=== PATIENT | female | born 1995 | race Caucasian/White ===

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

== ENCOUNTER 2017-08-04 22:42 | Emergency (ER) | payer MEDICAID ==
[2017-08-04] MEDS ORDERED: Lidocaine 1% 30 ML SDV INJECT ONE (22:56)
[2017-08-04 23:03] VITALS: BP 119/83
[2017-08-04] MEDS ORDERED: Lidocaine 1% with EPINEPHrine 1:100,000 30 ML MDV INJECT ONE (23:03)
--- NOTE | 2017-08-04 23:08 | EDM.PDOC ---
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 Para 1 0 Social & Family History - Family History Family Medical History: Noncontributory - Caffeine Use Caffeine Use: Reports: Soda ED ROS GENERAL - Review of Systems Review Of Systems: ROS reveals no pertinent complaints other than HPI. ED EXAM, SKIN/RASH Exam: See Below Exam Limited By: No Limitations General Appearance: Alert, WD/WN, Anxious Ears: Hearing Grossly Normal Throat/Mouth: Normal Voice, No Airway Compromise Head: Atraumatic Neck: Non-Tender, Full Range of Motion Respiratory/Chest: No Respiratory Distress Cardiovascular: Regular Rate, Rhythm GI/Abdominal: Soft, Non-Tender Extremities: Other (left knee 3" lac, normal ROM, NV wnl, gait limited to pain) Neurological: Alert, Oriented, Normal Cognition, Normal Gait, No Motor/Sensory Deficits Psychiatric: Anxious Skin: Warm, Dry, Normal Color Location, Skin: Lower Extremity, Right ED SKIN PROCEDURES - Laceration/Wound Repair Left Knee Lac/Wound length In cm: 6 (left medial knee) Appearance: Subcutaneous, Linear, Clean Distal NVT: Neuro & Vascular Intact, No Tendon Injury Anesthetic Type: Local Local Anesthesia - Lidocaine (Xylocaine): 1% Plain, 1% with EPI Local Anesthetic Volume: 5cc Skin Prep: Chlorhexidine (Hibiciens) Saline Irrigation (cc's): 30 Exploration/Debridement/Repair: Wound Explored, In a Bloodless Field, No Foreign Material Found Closed with: Sutures Suture Size: 2-0 Suture Type: Nylon, Mattress Suture Size: 3-0 Repaired with: Vicryl Sterile Dressing Applied: Provider Tetanus Status Addressed: Yes Complications: No Course - Vital Signs Last Recorded V/S: Last Vital Signs Temp 36.1 C 08/04/17 22:57 Pulse 82 08/04/17 22:57 Resp 17 08/04/17 22:57 BP 119/83 08/04/17 22:57 Pulse Ox 100 08/04/17 22:57 - Orders/Labs/Meds Meds: Medications Discontinued Medications Generic Name Dose Route Start Last Admin Trade Name Manuel PRN Reason Stop Dose Admin Lidocaine HCl 30 ml 08/04/17 22:56 Xylocaine-Mpf 1% INJECT 08/04/17 22:57 ONETIME ONE Lidocaine/Epinephrine 30 ml 08/04/17 23:03 Xylocaine 1% With Epinephrine 1:100,000 INJECT 08/04/17 23:04 ONETIME ONE Lidocaine/Epinephrine 10 ml 08/04/17 23:30 Xylocaine-Mpf 2% W/Epinephrine 1:200,000 INJECT 08/04/17 23:31 ONETIME ONE Departure - Departure Time of Disposition: 23:52 Disposition: Home, Self-Care 01 Condition: Good Clinical Impression: Laceration of knee without complication Qualifiers: Encounter type: initial encounter Laterality: left Qualified Code(s): S81.012A - Laceration without foreign body, left knee, initial encounter - Discharge Information Instructions: Sutured Wound Care, [id number] Forms: ED Department Discharge Additional Instructions: 1) elevate knee as much as possible next 24 hours 2) keep wound clean dry covered 3) daily dressing change and clean with peroxide 4) recheck if looks infected 5) suture removal 10 days rx given; keflex 250mg qid x 40 vicodin 5/325mg bid prn x 12
[2017-08-04] MEDS ORDERED: Lidocaine 2% with EPINEPHrine 1:100,000 50 ML MDV INJECT ONE (23:09)
[2017-08-04] MEDS ORDERED: Lidocaine 2% 20 ML MDV INJECT ONE (23:22)
[2017-08-04] MEDS ORDERED: Lidocaine 2% with EPINEPHrine 1:200,000 10 ML SDV INJECT ONE (23:30)
[2017-08-04] MEDS ORDERED: Cephalexin 500 MG Cap PO ONE (23:48)
[2017-08-04] MEDS ORDERED: Acetaminophen/HYDROcodone 325-10 MG Tab PO ONE (23:48)
[2017-08-04] MEDS ORDERED: Diphtheria,Pertussis(Acell),Tetanus Vaccine 0.5 ML SDV IM ONE (23:55)
== END 2017-08-05 00:15 | disposition home or self-care (01) ==
LOC: DL.ED 22:42
DX: S81.012A Laceration without foreign body, left knee, initial encounter (principal); Z23 Encounter for immunization; W26.9XXA Contact with unspecified sharp object(s), initial encounter
CPT/HCPCS: 12002; 90471; 90715; 99283; A9270

== ENCOUNTER 2018-05-07 22:22 | Inpatient (IN) | payer MEDICAID ==
[2018-05-07] MEDS ORDERED: Lidocaine 1% 30 ML SDV INJECT PRN (23:20)
[2018-05-07] MEDS ORDERED: Carboprost Tromethamine 250 MCG/1 ML Amp IM PRN (23:20)
[2018-05-07] MEDS ORDERED: Lactated Ringers 500 ML IV ONE (23:20)
[2018-05-07] MEDS ORDERED: Methylergonovine 0.2 MG/1 ML Amp IM PRN (23:20)
[2018-05-07] MEDS ORDERED: Tranexamic Acid 1,000 MG in Sodium Chloride 0.9% 100 ML IV PRN (23:20)
[2018-05-07] MEDS ORDERED: Ondansetron 4 MG/2 ML SDV IV PRN (23:20)
[2018-05-07] MEDS ORDERED: Misoprostol 400 MCG (4 X 100 MCG TAB) RECTAL PRN (23:20)
[2018-05-07] MEDS ORDERED: Sodium Chloride 0.9% 10 ML Syringe FLUSH PRN (23:20)
[2018-05-07] MEDS ORDERED: Lactated Ringers 1,000 ML IV SCH (23:30)
[2018-05-07] MEDS ORDERED: Oxytocin/Normal Saline 30 UNIT/500 ML BAG IV SCH (23:30)
--- NOTE | 2018-05-07 23:32 | PCM.LDHP ---
<AkikoestephaniaAna Luisa byers - Last Filed: 05/07/18 23:26> L&D History of Present Illness - General Date of Service: 05/07/18 Admit Problem/Dx: normal labor Patient Status Order with Admit Dx/Problem 05/07/18 23:21 Patient Status [ADT] Routine Admission Diagnosis/Problem Admission Diagnosis/Problem Normal labor 05/07/18 23:26 Source of Information: Patient - History of Present Illness Introduction:: Liana is a 23 yo female at 40w2d who presents to L&D with contractions. They started about 4-5 hours ago and are crampy in nature. About 5 minutes apart. Denies vaginal bleeding, LOF, headache, vision change. Baby is active. Last after AROM she had delivery within 30 min of delivery. No other complaints. Good care. 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 Para 1 0 Social & Family History - Family History Family Medical History: Noncontributory - Caffeine Use Caffeine Use: Reports: Soda H&P Review of Systems - Review of Systems: Review Of Systems: See Below General: Reports: No Symptoms HEENT: Reports: No Symptoms Pulmonary: Reports: No Symptoms. Denies: Shortness of Breath Cardiovascular: Denies: Chest Pain Gastrointestinal: Reports: No Symptoms Genitourinary: Reports: No Symptoms Musculoskeletal: Reports: No Symptoms Skin: Reports: No Symptoms Neurological: Reports: No Symptoms. Denies: Headache L&D Exam - Exam Exam: See Below - Vital Signs Vital Signs: vitals pending - Exam General: Alert, Oriented HEENT: Conjunctiva Clear Neck: Supple Lungs: Clear to Auscultation, Normal Respiratory Effort Cardiovascular: Regular Rate, Regular Rhythm. No: Systolic Murmur GI/Abdominal Exam: Soft, Non-Tender Genitourinary: Cervical dilitation (5/100/0) Extremities: No Pedal Edema Skin: Warm, Dry. No: Rash - Problem List (1) care in third trimester SNOMED Code(s): 041136481, [id number], [id number], 461420037, 051248534 ICD Code: Z34.93 - ENCNTR FOR SUPRVSN OF NORMAL PREG, UNSP, THIRD TRIMESTER Status: Acute Current Visit: No (2) Normal labor SNOMED Code(s): 31419028 ICD Code: O80 - ENCOUNTER FOR FULL-TERM UNCOMPLICATED DELIVERY; Z37.9 - OUTCOME OF DELIVERY, UNSPECIFIED Status: Acute Current Visit: Yes Problem List Initiated/Reviewed/Updated: Yes Orders Last 24hrs: Active Orders 24 hr Category Date Time Status Patient Status [ADT] Routine ADT 05/07/18 23:21 Ordered Communication Order [RC] ASDIRECTED Care 05/07/18 23:21 Ordered Heart Tones [RC] PER UNIT ROUTINE Care 05/07/18 23:21 Ordered Notify Provider Vital Signs OB [RC] ASDIRECTED Care 05/07/18 23:21 Ordered Notify Provider [RC] PRN Care 05/07/18 23:21 Ordered Pump Management, Intrathecal [RC] ASDIRECTED Care 05/07/18 23:23 Ordered Up ad Liset [RC] ASDIRECTED Care 05/07/18 23:21 Ordered Vital Signs [RC] PER UNIT ROUTINE Care 05/07/18 23:21 Ordered Nothing Per Oral Diet [DIET] Diet 05/07/18 Dinner Ordered CBC W/O DIFF,HEMOGRAM [HEME] Routine Lab 05/07/18 23:21 Ordered Acetaminophen [Tylenol] Med 05/07/18 23:20 Ordered 650 mg PO Q4H PRN Carboprost Tromethamine [Hemabate DS] Med 05/07/18 23:20 Ordered 250 mcg IM ASDIRECTED PRN Lactated Ringers @ 125 MLS/HR(1000ml) Med 05/07/18 23:30 Ordered Lactated Ringers [Ringers, Lactated] 1,000 ml IV ASDIRECTED Lactated Ringers [Ringers, Lactated] 500 ml Med 05/07/18 23:20 Ordered IV .BOLUS Lidocaine 1% [Xylocaine-MPF 1%] Med 05/07/18 23:20 Ordered 30 ml INJECT ASDIRECTED PRN Methylergonovine [Methergine] Med 05/07/18 23:20 Ordered 0.2 mg IM ASDIRECTED PRN Ondansetron [Zofran] Med 05/07/18 23:20 Ordered 4 mg IV Q4H PRN Oxytocin 30 Units in NS @ 2 MUNITS/MIN(500ml) Med 05/07/18 23:30 Ordered Oxytocin/Normal Saline [Pitocin in NS 30 UNIT/500 ML] 30 unit in 500 ml IV TITRATE Sodium Chloride 0.9% [Saline Flush] Med 05/07/18 23:20 Ordered 10 ml FLUSH ASDIRECTED PRN Tranexamic Acid [Cyklokapron] 1,000 mg Med 05/07/18 23:20 Ordered Sodium Chloride 0.9% [Normal Saline] 100 ml IV ONETIME miSOPROStol [Cytotec] Med 05/07/18 23:20 Ordered 800 mcg RECTAL ASDIRECTED PRN Saline Lock Insert [OM.PC] Routine Oth 05/07/18 23:21 Ordered Resuscitation Status Routine Resus Stat 05/07/18 23:20 Ordered Medication Orders Acetaminophen (Tylenol) 650 mg PO Q4H PRN PRN Reason: Pain (Mild 1-3) and fever Carboprost Tromethamine (Hemabate Ds) 250 mcg IM ASDIRECTED PRN PRN Reason: HEMORRHAGE Lactated Ringer's (Ringers, Lactated) 500 mls @ 999 mls/hr IV .BOLUS ONE Stop: 05/07/18 23:50 Lactated Ringer's (Ringers, Lactated) 1,000 mls @ 125 mls/hr IV ASDIRECTED ASHISH Oxytocin/Sodium Chloride (Pitocin In Ns 30 Unit/500 Ml) 30 unit in 500 mls @ 2 mls/hr IV TITRATE ASHISH; Protocol Tranexamic Acid 1,000 mg/ (Sodium Chloride) 110 mls @ 660 mls/hr IV ONETIME PRN PRN Reason: Bleeding Lidocaine HCl (Xylocaine-Mpf 1%) 30 ml INJECT ASDIRECTED PRN PRN Reason: Perineal Repair Methylergonovine Maleate (Methergine) 0.2 mg IM ASDIRECTED PRN PRN Reason: Hemorrhage Misoprostol (Cytotec) 800 mcg RECTAL ASDIRECTED PRN PRN Reason: Hemorrhage Ondansetron HCl (Zofran) 4 mg IV Q4H PRN PRN Reason: Nausea/Vomiting Sodium Chloride (Saline Flush) 10 ml FLUSH ASDIRECTED PRN PRN Reason: Keep Vein Open Assessment/Plan Comment:: Admit to L&D Expectant management AROM when able Plans unmedicated delivery Staffed with Dr. Mreedith <Ariana Meredith - Last Filed: 05/08/18 12:55> L&D History of Present Illness - General Admit Problem/Dx: Patient Status Order with Admit Dx/Problem 05/07/18 23:21 Patient Status [ADT] Routine Admission Diagnosis/Problem Admission Diagnosis/Problem Normal labor Past Medical History Other OB/BYN History: Please disregard--above information is from her first L&D Exam - Vital Signs Vital Signs: Last Vital Signs Temp 37.1 C 05/08/18 08:08 Pulse 114 H 05/08/18 08:08 Resp 18 05/08/18 08:08 BP 112/67 05/08/18 08:08 Pulse Ox 96 05/08/18 08:08 - Patel Score Patel Score Cervix Position: Anterior Patel Score Consistency: Soft Patel Score Effacement: >80% Patel Score Dilation: > 5 cm Patel Score Infant's Station: -1 ,0 Patel Score Total: 12 - Patient Data Lab Results Last 24 hrs: Laboratory Results - last 24 hr 05/07/18 Range/Units 23:20 WBC 10.1 H (5.0-10.0) 10^3/uL RBC 4.47 (4.2-5.4) 10^6/uL Hgb 13.8 D (12.0-16.0) g/dL Hct 40.2 (37.0-47.0) % MCV 89.9 (80-100) fL MCH 30.9 (27.0-34.0) pg MCHC 34.3 (33.0-35.0) g/dL Plt Count 145 L (150-450) 10^3/uL Result Diagrams: 05/07/18 23:20 - Problem List (1) Normal labor SNOMED Code(s): 37938164 ICD Code: O80 - ENCOUNTER FOR FULL-TERM UNCOMPLICATED DELIVERY; Z37.9 - OUTCOME OF DELIVERY, UNSPECIFIED Status: Resolved Current Visit: Yes Orders Last 24hrs: Active Orders 24 hr Category Date Time Status Patient Status [ADT] Routine ADT 05/07/18 23:21 Active Notify Provider Vital Signs OB [RC] ASDIRECTED Care 05/07/18 23:21 Active Up ad Liset [RC] ASDIRECTED Care 05/07/18 23:21 Active Vital Signs [RC] 08,20 Care 05/07/18 23:21 Active Vital Signs [RC] PFP Care 05/08/18 02:14 Active Consult to Cheese Production Supervisor [CONS] Routine Cons 05/08/18 02:14 Active Regular Diet [DIET] Diet 05/08/18 Breakfast Active Acetaminophen [Tylenol] Med 05/07/18 23:20 Active 650 mg PO Q4H PRN Acetaminophen/HYDROcodone [Orange 325-5 MG] Med 05/08/18 02:16 Active 1 tab PO Q6H PRN Benzocaine/Menthol [Dermoplast Pain Relief Gilliam] Med 05/08/18 02:14 Active See Dose Instructions TOP Q4H PRN Carboprost Tromethamine [Hemabate DS] Med 05/07/18 23:20 Active 250 mcg IM ASDIRECTED PRN Docusate Sodium [Colace] Med 05/08/18 02:14 Active 100 mg PO BID PRN Ibuprofen [Motrin] Med 05/08/18 02:14 Active 800 mg PO Q8H PRN Methylergonovine [Methergine] Med 05/07/18 23:20 Active 0.2 mg IM ASDIRECTED PRN Ondansetron [Zofran] Med 05/07/18 23:20 Active 4 mg IV Q4H PRN Oxytocin [Pitocin] Med 05/08/18 02:14 Active 10 unit IM ONETIME PRN Oxytocin/Normal Saline [Pitocin in NS 30 UNIT/500 ML] Med 05/07/18 23:30 Active 30 unit in 500 ml IV TITRATE Vit with Ca/FA/Iron [ Plus Iron] Med 05/08/18 09:00 Active 1 each PO DAILY Simethicone Med 05/08/18 02:14 Active 80 mg PO Q4H PRN Tranexamic Acid [Cyklokapron] 1,000 mg Med 05/07/18 23:20 Active Sodium Chloride 0.9% [Normal Saline] 100 ml IV ONETIME miSOPROStol [Cytotec] Med 05/07/18 23:20 Active 800 mcg RECTAL ASDIRECTED PRN Assess Lochia [WOMSER] Per Unit Routine Oth 05/08/18 02:14 Ordered Assess Uterine Involution [WOMSER] Per Unit Routine Oth 05/08/18 02:14 Ordered Breast Pump [WOMSER] Per Unit Routine Oth 05/08/18 02:14 Ordered Ice Therapy [OM.PC] Per Unit Routine Oth 05/08/18 02:14 Ordered Perineal Care [OM.PC] Per Unit Routine Oth 05/08/18 02:14 Ordered Saline Lock Insert [OM.PC] Routine Oth 05/07/18 23:21 Ordered Sitz Bath [OM.PC] Per Unit Routine Oth 05/08/18 02:14 Ordered Resuscitation Status Routine Resus Stat 05/07/18 23:20 Ordered Medication Orders Acetaminophen (Tylenol) 650 mg PO Q4H PRN PRN Reason: Pain (Mild 1-3) and fever Last Admin: 05/08/18 12:44 Dose: 650 mg Hydrocodone Bitart/Acetaminophen (Orange 325-5 Mg) 1 tab PO Q6H PRN PRN Reason: Pain (severe 7-10) Benzocaine/Menthol (Dermoplast Pain Relief Gilliam) 0 gm TOP Q4H PRN PRN Reason: Perineal comfort measures Carboprost Tromethamine (Hemabate Ds) 250 mcg IM ASDIRECTED PRN PRN Reason: HEMORRHAGE Docusate Sodium (Colace) 100 mg PO BID PRN PRN Reason: Constipation Last Admin: 05/08/18 07:58 Dose: 100 mg Oxytocin/Sodium Chloride (Pitocin In Ns 30 Unit/500 Ml) 30 unit in 500 mls @ 2 mls/hr IV TITRATE ASHISH; Protocol Last Titration: 05/08/18 04:15 Dose: 0 munits/min, 0 mls/hr Titration: 05/08/18 03:50 Dose: 50 munits/min, 50 mls/hr Titration: 05/08/18 03:00 Dose: 125 munits/min, 125 mls/hr Titration: 05/08/18 02:18 Dose: 250 munits/min, 250 mls/hr Admin: 05/08/18 01:52 Dose: 500 munits/min, 500 mls/hr Tranexamic Acid 1,000 mg/ (Sodium Chloride) 110 mls @ 660 mls/hr IV ONETIME PRN PRN Reason: Bleeding Ibuprofen (Motrin) 800 mg PO Q8H PRN PRN Reason: Mild Pain or Fever Last Admin: 05/08/18 07:59 Dose: 800 mg Methylergonovine Maleate (Methergine) 0.2 mg IM ASDIRECTED PRN PRN Reason: Hemorrhage Misoprostol (Cytotec) 800 mcg RECTAL ASDIRECTED PRN PRN Reason: Hemorrhage Ondansetron HCl (Zofran) 4 mg IV Q4H PRN PRN Reason: Nausea/Vomiting Oxytocin (Pitocin) 10 unit IM ONETIME PRN PRN Reason: Bleeding Prenat Multivit/Special Day Class Teacher/Iron/Folic Ac ( Plus Iron) 1 each PO DAILY ASHISH Last Admin: 05/08/18 09:18 Dose: Not Given Admin: 05/08/18 07:58 Dose: 1 each Simethicone (Simethicone) 80 mg PO Q4H PRN PRN Reason: Gas Assessment/Plan Comment:: Agree with resident assessment and plan. Will AROM when able--unable to upon admission due to staffing issues because of urgent matter on L&D floor. Ariana Meredith MD
[2018-05-08] MEDS ORDERED: Oxytocin 10 Units/1 ML SDV IM PRN (02:14)
[2018-05-08] MEDS ORDERED: Benzocaine/Menthol 20%-0.5% Spray 56 GM Canister TOP PRN (02:14)
[2018-05-08] MEDS ORDERED: Simethicone 80 MG Tab.Chew PO PRN (02:14)
[2018-05-08] MEDS ORDERED: Acetaminophen/HYDROcodone 325-5 MG Tab PO PRN (02:16)
--- NOTE | 2018-05-08 02:38 | PCM.DEL ---
<Ana Luisa Bryant - Last Filed: 05/08/18 02:33> L & D Note - General Info Date of Service: 05/08/18 - Delivery Note Labor: Spontaneous, Augmented by ARM Delivery Outcome: Livebirth Delivery Method: Spontaneous Vaginal Delivery-Single Infant Delivery Mode: Spontaneous Presentation: Right Occiput Anterior (MARY) Nuchal Cord: None Anesthesia Type: None Amniotic Fluid Description: Clear Episiotomy Type: None Laceration: Periurethral (left, not repaired) Placenta: Intact, Spontaneous Estimated Blood Loss: 300 Resuscitation Needed: No Score 1 min: 8 Score 5 min: 9 Second Stage Interventions: Reports: Pushing, Feet in Foot Rests, Pushing, McRobert's Position, Pushing, Pulls Own Legs Back Delivery Comments (Free Text/Narrative):: Presented in active labor. Augmented with AROM. Progressed to complete without complication. Head delivered spontaneously. 30 second shoulder dystocia resolved by McRobert's maneuver. Body then delivered without incident. No cord complications. Placenta delivered spontaneously and intact. Left periurethra laceration not repaired. Hemostasis achieved. - General Info Date of Service: 05/08/18 - Patient Data Weight - Most Recent: 71.214 kg Lab Results Last 24 Hours: Laboratory Results - last 24 hr 05/07/18 Range/Units 23:20 WBC 10.1 H (5.0-10.0) 10^3/uL RBC 4.47 (4.2-5.4) 10^6/uL Hgb 13.8 D (12.0-16.0) g/dL Hct 40.2 (37.0-47.0) % MCV 89.9 (80-100) fL MCH 30.9 (27.0-34.0) pg MCHC 34.3 (33.0-35.0) g/dL Plt Count 145 L (150-450) 10^3/uL Med Orders - Current: Current Medications Acetaminophen (Tylenol) 650 mg PO Q4H PRN PRN Reason: Pain (Mild 1-3) and fever Hydrocodone Bitart/Acetaminophen ([place] 325-5 Mg) 1 tab PO Q6H PRN PRN Reason: Pain (severe 7-10) Benzocaine/Menthol (Dermoplast Pain Relief [place]) 0 gm TOP Q4H PRN PRN Reason: Perineal comfort measures Carboprost Tromethamine (Hemabate Ds) 250 mcg IM ASDIRECTED PRN PRN Reason: HEMORRHAGE Docusate Sodium (Colace) 100 mg PO BID PRN PRN Reason: Constipation Lactated Ringer's (Ringers, Lactated) 1,000 mls @ 125 mls/hr IV ASDIRECTED [facility] Last Admin: 05/08/18 01:24 Dose: 125 mls/hr Oxytocin/Sodium Chloride (Pitocin In Ns 30 Unit/500 Ml) 30 unit in 500 mls @ 2 mls/hr IV TITRATE ASHISH; Protocol Last Titration: 05/08/18 02:18 Dose: 250 munits/min, 250 mls/hr Tranexamic Acid 1,000 mg/ (Sodium Chloride) 110 mls @ 660 mls/hr IV ONETIME PRN PRN Reason: Bleeding Ibuprofen (Motrin) 800 mg PO Q8H PRN PRN Reason: Mild Pain or Fever Lidocaine HCl (Xylocaine-Mpf 1%) 30 ml INJECT ASDIRECTED PRN PRN Reason: Perineal Repair Methylergonovine Maleate (Methergine) 0.2 mg IM ASDIRECTED PRN PRN Reason: Hemorrhage Misoprostol (Cytotec) 800 mcg RECTAL ASDIRECTED PRN PRN Reason: Hemorrhage Ondansetron HCl (Zofran) 4 mg IV Q4H PRN PRN Reason: Nausea/Vomiting Oxytocin (Pitocin) 10 unit IM ONETIME PRN PRN Reason: Bleeding Prenat Multivit/[place]/Iron/Folic Ac ( Plus Iron) 1 each PO DAILY [facility] Simethicone (Simethicone) 80 mg PO Q4H PRN PRN Reason: Gas Sodium Chloride (Saline Flush) 10 ml FLUSH ASDIRECTED PRN PRN Reason: Keep Vein Open Discontinued Medications Lactated Ringer's (Ringers, Lactated) 500 mls @ 999 mls/hr IV .BOLUS ONE Stop: 05/07/18 23:50 - Problem List & Annotations (1) care in third trimester SNOMED Code(s): 857658168, 46218488, 96350051, 939111493, 137875331 Code(s): Z34.93 - ENCNTR FOR SUPRVSN OF NORMAL PREG, UNSP, THIRD TRIMESTER Status: Resolved Current Visit: No (2) Normal labor SNOMED Code(s): 78883337 Code(s): O80 - ENCOUNTER FOR FULL-TERM UNCOMPLICATED DELIVERY; Z37.9 - OUTCOME OF DELIVERY, UNSPECIFIED Status: Resolved Current Visit: Yes (3) (normal spontaneous vaginal delivery) SNOMED Code(s): 37975667 Code(s): O80 - ENCOUNTER FOR FULL-TERM UNCOMPLICATED DELIVERY Status: Acute Current Visit: Yes (4) Shoulder dystocia during labor and delivery, delivered SNOMED Code(s): 231503824, 018259069 Code(s): O66.0 - OBSTRUCTED LABOR DUE TO SHOULDER DYSTOCIA Status: Acute Current Visit: Yes - Problem List Review Problem List Initiated/Reviewed/Updated: Yes - My Orders Last 24 Hours: My Active Orders 05/07/18 23:20 Acetaminophen [Tylenol] 650 mg PO Q4H PRN Carboprost Tromethamine [Hemabate DS] 250 mcg IM ASDIRECTED PRN Lidocaine 1% [Xylocaine-MPF 1%] 30 ml INJECT ASDIRECTED PRN Methylergonovine [Methergine] 0.2 mg IM ASDIRECTED PRN Ondansetron [Zofran] 4 mg IV Q4H PRN Sodium Chloride 0.9% [Saline Flush] 10 ml FLUSH ASDIRECTED PRN Tranexamic Acid [Cyklokapron] 1,000 mg Sodium Chloride 0.9% [Normal Saline] 100 ml IV ONETIME miSOPROStol [Cytotec] 800 mcg RECTAL ASDIRECTED PRN Resuscitation Status Routine 05/07/18 23:21 Patient Status [ADT] Routine Communication Order [RC] ASDIRECTED Heart Tones [RC] PER UNIT ROUTINE Notify Provider Vital Signs OB [RC] ASDIRECTED Notify Provider [RC] PRN Up ad Liset [RC] ASDIRECTED Vital Signs [RC] PER UNIT ROUTINE Saline Lock Insert [OM.PC] Routine 05/07/18 23:23 Pump Management, Intrathecal [RC] ASDIRECTED 05/07/18 23:30 Lactated Ringers [Ringers, Lactated] 1,000 ml IV ASDIRECTED Oxytocin/Normal Saline [Pitocin in NS 30 UNIT/500 ML] 30 unit in 500 ml IV TITRATE 05/07/18 Dinner Nothing Per Oral Diet [DIET] - Plan Plan:: Initiate routine post cares. Staffed with Dr. Meredith <MasoudAriana Ann - Last Filed: 05/08/18 13:02> - Patient Data Vitals - Most Recent: Last Vital Signs Temp 37.1 C 05/08/18 08:08 Pulse 114 H 05/08/18 08:08 Resp 18 05/08/18 08:08 BP 112/67 05/08/18 08:08 Pulse Ox 96 05/08/18 08:08 I&O - Last 24 Hours: Intake & Output 05/07/18 05/08/18 05/08/18 22:59 06:59 14:59 Intake Total 1500 Balance 1500 Lab Results Last 24 Hours: Laboratory Results - last 24 hr 05/07/18 Range/Units 23:20 WBC 10.1 H (5.0-10.0) 10^3/uL RBC 4.47 (4.2-5.4) 10^6/uL Hgb 13.8 D (12.0-16.0) g/dL Hct 40.2 (37.0-47.0) % MCV 89.9 (80-100) fL MCH 30.9 (27.0-34.0) pg MCHC 34.3 (33.0-35.0) g/dL Plt Count 145 L (150-450) 10^3/uL Med Orders - Current: Current Medications Acetaminophen (Tylenol) 650 mg PO Q4H PRN PRN Reason: Pain (Mild 1-3) and fever Last Admin: 05/08/18 12:44 Dose: 650 mg Hydrocodone Bitart/Acetaminophen ([place] 325-5 Mg) 1 tab PO Q6H PRN PRN Reason: Pain (severe 7-10) Benzocaine/Menthol (Dermoplast Pain Relief [place]) 0 gm TOP Q4H PRN PRN Reason: Perineal comfort measures Carboprost Tromethamine (Hemabate Ds) 250 mcg IM ASDIRECTED PRN PRN Reason: HEMORRHAGE Docusate Sodium (Colace) 100 mg PO BID PRN PRN Reason: Constipation Last Admin: 05/08/18 07:58 Dose: 100 mg Oxytocin/Sodium Chloride (Pitocin In Ns 30 Unit/500 Ml) 30 unit in 500 mls @ 2 mls/hr IV TITRATE ASHISH; Protocol Last Titration: 05/08/18 04:15 Dose: Infused Tranexamic Acid 1,000 mg/ (Sodium Chloride) 110 mls @ 660 mls/hr IV ONETIME PRN PRN Reason: Bleeding Ibuprofen (Motrin) 800 mg PO Q8H PRN PRN Reason: Mild Pain or Fever Last Admin: 05/08/18 07:59 Dose: 800 mg Methylergonovine Maleate (Methergine) 0.2 mg IM ASDIRECTED PRN PRN Reason: Hemorrhage Misoprostol (Cytotec) 800 mcg RECTAL ASDIRECTED PRN PRN Reason: Hemorrhage Ondansetron HCl (Zofran) 4 mg IV Q4H PRN PRN Reason: Nausea/Vomiting Oxytocin (Pitocin) 10 unit IM ONETIME PRN PRN Reason: Bleeding Prenat Multivit/[place]/Iron/Folic Ac ( Plus Iron) 1 each PO DAILY [facility] Last Admin: 05/08/18 09:18 Dose: Not Given Simethicone (Simethicone) 80 mg PO Q4H PRN PRN Reason: Gas Discontinued Medications Lactated Ringer's (Ringers, Lactated) 500 mls @ 999 mls/hr IV .BOLUS ONE Stop: 05/07/18 23:50 Last Admin: 05/08/18 08:47 Dose: Not Given Lactated Ringer's (Ringers, Lactated) 1,000 mls @ 125 mls/hr IV ASDIRECTED [facility] Last Admin: 05/08/18 01:24 Dose: 125 mls/hr Lidocaine HCl (Xylocaine-Mpf 1%) 30 ml INJECT ASDIRECTED PRN PRN Reason: Perineal Repair Sodium Chloride (Saline Flush) 10 ml FLUSH ASDIRECTED PRN PRN Reason: Keep Vein Open - Problem List & Annotations (1) Normal labor SNOMED Code(s): 23662758 Code(s): O80 - ENCOUNTER FOR FULL-TERM UNCOMPLICATED DELIVERY; Z37.9 - OUTCOME OF DELIVERY, UNSPECIFIED Status: Resolved Current Visit: Yes - My Orders Last 24 Hours: My Active Orders 05/08/18 02:14 Vital Signs [RC] PFP Consult to Linux Network Administrator [CONS] Routine Benzocaine/Menthol [Dermoplast Pain Relief [place]] See Dose Instructions TOP Q4H PRN Docusate Sodium [Colace] 100 mg PO BID PRN Ibuprofen [Motrin] 800 mg PO Q8H PRN Oxytocin [Pitocin] 10 unit IM ONETIME PRN Simethicone 80 mg PO Q4H PRN Assess Lochia [WOMSER] Per Unit Routine Assess Uterine Involution [WOMSER] Per Unit Routine Breast Pump [WOMSER] Per Unit Routine Ice Therapy [OM.PC] Per Unit Routine Perineal Care [OM.PC] Per Unit Routine Sitz Bath [OM.PC] Per Unit Routine 05/08/18 02:16 Acetaminophen/HYDROcodone [[place] 325-5 MG] 1 tab PO Q6H PRN 05/08/18 09:00 Vit with Ca/FA/Iron [ Plus Iron] 1 each PO DAILY 05/08/18 Breakfast Regular Diet [DIET] - Plan Plan:: Agree with resident assessment and plan. I was present for the entire delivery. There were no immediate complications. Initiate routine cares. Mother plans to breastfeed. Ariana Meredith MD
[2018-05-08] MEDS: Prenatal Multivitamin with Calcium/Folic Acid/Iron Tab PO SCH ×2 (07:58→09:18)
[2018-05-08] MEDS: Docusate Sodium 100 MG Cap PO PRN ×2 (07:58→18:28)
[2018-05-08] MEDS: Ibuprofen 800 MG Tab PO PRN ×2 (07:59→18:28)
[2018-05-08] MEDS: Acetaminophen 325 MG Tab PO PRN ×2 (12:44→18:28)
[2018-05-09 07:32] VITALS: BP 131/75
[2018-05-09] MEDS: Ibuprofen 800 MG Tab PO PRN (09:38)
[2018-05-09] MEDS: Prenatal Multivitamin with Calcium/Folic Acid/Iron Tab PO SCH (09:38)
[2018-05-09] MEDS: Docusate Sodium 100 MG Cap PO PRN (09:38)
--- NOTE | 2018-05-09 09:54 | PCM.PNPP ---
- General Info Date of Service: 05/09/18 Admission Dx/Problem (Free Text): Patient Status Order with Admit Dx/Problem 05/07/18 23:21 Patient Status [ADT] Routine Admission Diagnosis/Problem Admission Diagnosis/Problem Normal labor Subjective Update: Liana is PPD1 from complicated by short shoulder dystocia. Doing well this morning. Pain well controlled. Lochia is mild. tolerating general diet. No nausea/vomiting. Urinating spontaneously. Passing gas. Ambulating well. and this is going well. Baby doing well. Denies headache, vision change, calf pain. - Review of Systems Systems Review Comment:: ROS completed and negative except per HPI - General Info Date of Service: 05/09/18 - Patient Data Vital Signs - Most Recent: Last Vital Signs Temp 97.1 F 05/09/18 07:31 Pulse 94 05/09/18 07:31 Resp 16 05/09/18 07:31 BP 131/75 05/09/18 07:31 Pulse Ox 100 05/09/18 07:31 Weight - Most Recent: 157 lb Med Orders - Current: Current Medications Acetaminophen (Tylenol) 650 mg PO Q4H PRN PRN Reason: Pain (Mild 1-3) and fever Last Admin: 05/08/18 18:28 Dose: 650 mg Hydrocodone Bitart/Acetaminophen ([place] 325-5 Mg) 1 tab PO Q6H PRN PRN Reason: Pain (severe 7-10) Benzocaine/Menthol (Dermoplast Pain Relief [place]) 0 gm TOP Q4H PRN PRN Reason: Perineal comfort measures Carboprost Tromethamine (Hemabate Ds) 250 mcg IM ASDIRECTED PRN PRN Reason: HEMORRHAGE Docusate Sodium (Colace) 100 mg PO BID PRN PRN Reason: Constipation Last Admin: 05/09/18 09:38 Dose: 100 mg Oxytocin/Sodium Chloride (Pitocin In Ns 30 Unit/500 Ml) 30 unit in 500 mls @ 2 mls/hr IV TITRATE ASHISH; Protocol Last Titration: 05/08/18 04:15 Dose: Infused Tranexamic Acid 1,000 mg/ (Sodium Chloride) 110 mls @ 660 mls/hr IV ONETIME PRN PRN Reason: Bleeding Ibuprofen (Motrin) 800 mg PO Q8H PRN PRN Reason: Mild Pain or Fever Last Admin: 05/09/18 09:38 Dose: 800 mg Methylergonovine Maleate (Methergine) 0.2 mg IM ASDIRECTED PRN PRN Reason: Hemorrhage Misoprostol (Cytotec) 800 mcg RECTAL ASDIRECTED PRN PRN Reason: Hemorrhage Ondansetron HCl (Zofran) 4 mg IV Q4H PRN PRN Reason: Nausea/Vomiting Oxytocin (Pitocin) 10 unit IM ONETIME PRN PRN Reason: Bleeding Prenat Multivit/[place]/Iron/Folic Ac ( Plus Iron) 1 each PO DAILY [facility] Last Admin: 05/09/18 09:38 Dose: 1 each Simethicone (Simethicone) 80 mg PO Q4H PRN PRN Reason: Gas Discontinued Medications Lactated Ringer's (Ringers, Lactated) 500 mls @ 999 mls/hr IV .BOLUS ONE Stop: 05/07/18 23:50 Last Admin: 05/08/18 08:47 Dose: Not Given Lactated Ringer's (Ringers, Lactated) 1,000 mls @ 125 mls/hr IV ASDIRECTED [facility] Last Admin: 05/08/18 01:24 Dose: 125 mls/hr Lidocaine HCl (Xylocaine-Mpf 1%) 30 ml INJECT ASDIRECTED PRN PRN Reason: Perineal Repair Sodium Chloride (Saline Flush) 10 ml FLUSH ASDIRECTED PRN PRN Reason: Keep Vein Open - Interaction Disposition, : at Bedside Interaction: Holding Feeding: Breastfed ; Nursed Well Support Person: Significant Other - Recovery Exam Fundal Tone: Firm Fundal Level: 2 Fingerbreadths Below Umbilicus Fundal Placement: Midline Lochia Amount: Small Lochia Color: Rubra/Red Perineum Description: Intact, Minimal Bruising/Swelling Episiotomy/Laceration: None Bladder Status: Nonpalpable, Voiding Urinary Elimination: Voided - Exam General: Alert, Oriented, No Acute Distress Neck: Supple Lungs: Clear to Auscultation, Normal Respiratory Effort. No: Rales, Rhonchi, Wheezing Cardiovascular: Regular Rate, Regular Rhythm, No Murmurs GI/Abdominal Exam: Soft, Non-Tender Extremities: No Pedal Edema Skin: Warm, Dry Psy/Mental Status: Alert, Normal Affect, Normal Mood - Problem List & Annotations (1) care in third trimester SNOMED Code(s): 918941086, 78490366, 21525758, 358827676, 290793190 Code(s): Z34.93 - ENCNTR FOR SUPRVSN OF NORMAL PREG, UNSP, THIRD TRIMESTER Status: Resolved Current Visit: No (2) Normal labor SNOMED Code(s): 92101120 Code(s): O80 - ENCOUNTER FOR FULL-TERM UNCOMPLICATED DELIVERY; Z37.9 - OUTCOME OF DELIVERY, UNSPECIFIED Status: Resolved Current Visit: Yes (3) (normal spontaneous vaginal delivery) SNOMED Code(s): 70019748 Code(s): O80 - ENCOUNTER FOR FULL-TERM UNCOMPLICATED DELIVERY Status: Acute Current Visit: Yes (4) Shoulder dystocia during labor and delivery, delivered SNOMED Code(s): 322276720, 872752282 Code(s): O66.0 - OBSTRUCTED LABOR DUE TO SHOULDER DYSTOCIA Status: Acute Current Visit: Yes - Problem List Review Problem List Initiated/Reviewed/Updated: Yes - My Orders Last 24 Hours: My Active Orders 05/09/18 08:35 Ready for Discharge [RC] PER UNIT ROUTINE - Plan Plan:: Agree with resident assessment and plan. I was present for the entire delivery. There were no immediate complications. Initiate routine cares. Mother plans to breastfeed. Ariana Meredith MD
--- NOTE | 2018-05-09 10:02 | PCM.DCSUM1 ---
<ScottseanestephaniaAna Luisa byers - Last Filed: 05/09/18 09:57> Discharge Summary - Hospital Course Free Text/Narrative:: Liana is a 23 yo G2 now P2 female who presented in normal labor at 40w2d and proceeded to have a complicated by a 30 second shoulder dystocia resolved with Stella maneuver. Post course was uncomplicated. Hgb stable. By PPD1 she was tolerating general diet, ambulating, urinating spontaneously, and had pain that was well controlled. - Discharge Data Discharge Date: 05/09/18 Discharge Disposition: Home, Self-Care 01 Condition: Good - Discharge Diagnosis/Problem(s) (1) care in third trimester SNOMED Code(s): 974875340, 54190640, 77736045, 258144963, 816109591 ICD Code: Z34.93 - ENCNTR FOR SUPRVSN OF NORMAL PREG, UNSP, THIRD TRIMESTER Status: Resolved Current Visit: No (2) Normal labor SNOMED Code(s): 48645301 ICD Code: O80 - ENCOUNTER FOR FULL-TERM UNCOMPLICATED DELIVERY; Z37.9 - OUTCOME OF DELIVERY, UNSPECIFIED Status: Resolved Current Visit: Yes (3) (normal spontaneous vaginal delivery) SNOMED Code(s): 81140565 ICD Code: O80 - ENCOUNTER FOR FULL-TERM UNCOMPLICATED DELIVERY Status: Acute Current Visit: Yes (4) Shoulder dystocia during labor and delivery, delivered SNOMED Code(s): 891435189, 612993704 ICD Code: O66.0 - OBSTRUCTED LABOR DUE TO SHOULDER DYSTOCIA Status: Acute Current Visit: Yes - Patient Summary/Data Consults: Consultations 05/08/18 02:14 Consult to Flame Channeler [CONS] Routine - Patient Instructions Diet: Regular Diet as Tolerated Activity: As Tolerated Driving: May Drive Today Notify Provider of: Fever, Increased Pain, Swelling and Redness, Nausea and/or Vomiting - Discharge Plan *PRESCRIPTION DRUG MONITORING PROGRAM REVIEWED*: Not Applicable *COPY OF PRESCRIPTION DRUG MONITORING REPORT IN PATIENT GUSTAVO: Not Applicable Home Medications: Home Meds Pnv95/Iron Fum/Folic Acid [ [place]] 1 tab PO DAILY 03/19/16 [History] Acetaminophen [Tylenol] 650 mg PO Q4H PRN #0 tablet 09/02/16 [Rx] Docusate Sodium [Colace] 100 mg PO BID PRN #0 cap 09/02/16 [Rx] Ibuprofen [IJD: Ibuprofen] 800 mg PO Q8H PRN #0 tablet 09/02/16 [Rx] Ferrous Sulfate [Iron] 325 mg PO DAILY 05/08/18 [History] Patient Handouts: Vaginal Delivery, Care After - Discharge Summary/Plan Comment DC Time >30 min.: No Discharge Summary/Plan Comment: discharge patient to home Return criteria discussed as above. Follow up 6 weeks for post exam, sooner if concerns arise. Staffed with Dr. Meredith. - Patient Data Vitals - Most Recent: Last Vital Signs Temp 97.1 F 05/09/18 07:31 Pulse 94 05/09/18 07:31 Resp 16 05/09/18 07:31 BP 131/75 05/09/18 07:31 Pulse Ox 100 05/09/18 07:31 Weight - Most Recent: 71.214 kg Med Orders - Current: Current Medications Acetaminophen (Tylenol) 650 mg PO Q4H PRN PRN Reason: Pain (Mild 1-3) and fever Last Admin: 05/08/18 18:28 Dose: 650 mg Hydrocodone Bitart/Acetaminophen ([place] 325-5 Mg) 1 tab PO Q6H PRN PRN Reason: Pain (severe 7-10) Benzocaine/Menthol (Dermoplast Pain Relief [place]) 0 gm TOP Q4H PRN PRN Reason: Perineal comfort measures Carboprost Tromethamine (Hemabate Ds) 250 mcg IM ASDIRECTED PRN PRN Reason: HEMORRHAGE Docusate Sodium (Colace) 100 mg PO BID PRN PRN Reason: Constipation Last Admin: 05/09/18 09:38 Dose: 100 mg Oxytocin/Sodium Chloride (Pitocin In Ns 30 Unit/500 Ml) 30 unit in 500 mls @ 2 mls/hr IV TITRATE ASHISH; Protocol Last Titration: 05/08/18 04:15 Dose: Infused Tranexamic Acid 1,000 mg/ (Sodium Chloride) 110 mls @ 660 mls/hr IV ONETIME PRN PRN Reason: Bleeding Ibuprofen (Motrin) 800 mg PO Q8H PRN PRN Reason: Mild Pain or Fever Last Admin: 05/09/18 09:38 Dose: 800 mg Methylergonovine Maleate (Methergine) 0.2 mg IM ASDIRECTED PRN PRN Reason: Hemorrhage Misoprostol (Cytotec) 800 mcg RECTAL ASDIRECTED PRN PRN Reason: Hemorrhage Ondansetron HCl (Zofran) 4 mg IV Q4H PRN PRN Reason: Nausea/Vomiting Oxytocin (Pitocin) 10 unit IM ONETIME PRN PRN Reason: Bleeding Prenat Multivit/[place]/Iron/Folic Ac ( Plus Iron) 1 each PO DAILY [facility] Last Admin: 05/09/18 09:38 Dose: 1 each Simethicone (Simethicone) 80 mg PO Q4H PRN PRN Reason: Gas Discontinued Medications Lactated Ringer's (Ringers, Lactated) 500 mls @ 999 mls/hr IV .BOLUS ONE Stop: 05/07/18 23:50 Last Admin: 05/08/18 08:47 Dose: Not Given Lactated Ringer's (Ringers, Lactated) 1,000 mls @ 125 mls/hr IV ASDIRECTED [facility] Last Admin: 05/08/18 01:24 Dose: 125 mls/hr Lidocaine HCl (Xylocaine-Mpf 1%) 30 ml INJECT ASDIRECTED PRN PRN Reason: Perineal Repair Sodium Chloride (Saline Flush) 10 ml FLUSH ASDIRECTED PRN PRN Reason: Keep Vein Open <Ariana Meredith Mary - Last Filed: 05/09/18 13:20> Discharge Summary - Discharge Diagnosis/Problem(s) (1) Normal labor SNOMED Code(s): 50837708 ICD Code: O80 - ENCOUNTER FOR FULL-TERM UNCOMPLICATED DELIVERY; Z37.9 - OUTCOME OF DELIVERY, UNSPECIFIED Status: Resolved Current Visit: Yes - Patient Summary/Data Consults: Consultations 05/08/18 02:14 Consult to Flame Channeler [CONS] Routine - Discharge Summary/Plan Comment Discharge Summary/Plan Comment: Agree with resident assessment and plan. Discharge home today. Ariana Meredith MD - Patient Data Vitals - Most Recent: Last Vital Signs Temp 36.2 C 05/09/18 07:31 Pulse 94 05/09/18 07:31 Resp 16 05/09/18 07:31 BP 131/75 05/09/18 07:31 Pulse Ox 100 05/09/18 07:31 Med Orders - Current: Current Medications Acetaminophen (Tylenol) 650 mg PO Q4H PRN PRN Reason: Pain (Mild 1-3) and fever Last Admin: 05/08/18 18:28 Dose: 650 mg Hydrocodone Bitart/Acetaminophen ([place] 325-5 Mg) 1 tab PO Q6H PRN PRN Reason: Pain (severe 7-10) Benzocaine/Menthol (Dermoplast Pain Relief [place]) 0 gm TOP Q4H PRN PRN Reason: Perineal comfort measures Carboprost Tromethamine (Hemabate Ds) 250 mcg IM ASDIRECTED PRN PRN Reason: HEMORRHAGE Docusate Sodium (Colace) 100 mg PO BID PRN PRN Reason: Constipation Last Admin: 05/09/18 09:38 Dose: 100 mg Oxytocin/Sodium Chloride (Pitocin In Ns 30 Unit/500 Ml) 30 unit in 500 mls @ 2 mls/hr IV TITRATE ASHISH; Protocol Last Titration: 05/08/18 04:15 Dose: Infused Tranexamic Acid 1,000 mg/ (Sodium Chloride) 110 mls @ 660 mls/hr IV ONETIME PRN PRN Reason: Bleeding Ibuprofen (Motrin) 800 mg PO Q8H PRN PRN Reason: Mild Pain or Fever Last Admin: 05/09/18 09:38 Dose: 800 mg Methylergonovine Maleate (Methergine) 0.2 mg IM ASDIRECTED PRN PRN Reason: Hemorrhage Misoprostol (Cytotec) 800 mcg RECTAL ASDIRECTED PRN PRN Reason: Hemorrhage Ondansetron HCl (Zofran) 4 mg IV Q4H PRN PRN Reason: Nausea/Vomiting Oxytocin (Pitocin) 10 unit IM ONETIME PRN PRN Reason: Bleeding Prenat Multivit/[place]/Iron/Folic Ac ( Plus Iron) 1 each PO DAILY [facility] Last Admin: 05/09/18 09:38 Dose: 1 each Simethicone (Simethicone) 80 mg PO Q4H PRN PRN Reason: Gas Discontinued Medications Lactated Ringer's (Ringers, Lactated) 500 mls @ 999 mls/hr IV .BOLUS ONE Stop: 05/07/18 23:50 Last Admin: 05/08/18 08:47 Dose: Not Given Lactated Ringer's (Ringers, Lactated) 1,000 mls @ 125 mls/hr IV ASDIRECTED ASH[facility] Last Admin: 05/08/18 01:24 Dose: 125 mls/hr Lidocaine HCl (Xylocaine-Mpf 1%) 30 ml INJECT ASDIRECTED PRN PRN Reason: Perineal Repair Sodium Chloride (Saline Flush) 10 ml FLUSH ASDIRECTED PRN PRN Reason: Keep Vein Open
== END 2018-05-09 11:30 | disposition home or self-care (01) | DRG 807 ==
LOC: DL.OBCHECK 22:22 → DL.OB 23:22 → OBSVTOIN 05-08 01:48
PROVIDERS: ADMIT Family Medicine; ATTEND Family Medicine
PROC: 10E0XZZ Delivery of Products of Conception, External Approach (ICD-10-PCS; principal; 2018-05-08)
PROC: 10907ZC Drainage of Amniotic Fluid, Therapeutic from Products of Conception, Via Natural or Artificial Opening (ICD-10-PCS; 2018-05-08)
DX: O48.0 Post-term pregnancy (principal); O66.0 Obstructed labor due to shoulder dystocia; O71.82 Other specified trauma to perineum and vulva; Z3A.40 40 weeks gestation of pregnancy; Z37.0 Single live birth
CPT/HCPCS: 36415; 59409; 85027; A9270-GY; J2590; J7120

== ENCOUNTER 2023-08-09 09:15 | Inpatient (IN) | payer MEDICAID ==
[2023-08-09] MEDS: Lactated Ringers 1,000 ML IV ONE (09:45)
[2023-08-09] MEDS ORDERED: Sodium Chloride 0.9% 10 ML Syringe FLUSH PRN (10:00)
[2023-08-09] MEDS ORDERED: Methylergonovine 0.2 MG/1 ML Amp IM PRN (10:00)
[2023-08-09] MEDS ORDERED: Misoprostol 400 MCG (4 X 100 MCG TAB) RECTAL PRN (10:00)
[2023-08-09] MEDS ORDERED: fentaNYL 100 MCG/2 ML SDV IVPUSH PRN (10:00)
[2023-08-09] MEDS ORDERED: Tranexamic Acid 1,000 MG in Sodium Chloride 0.9% 100 ML IV PRN (10:00)
[2023-08-09] MEDS ORDERED: Carboprost Tromethamine 250 MCG/1 ML Amp IM PRN (10:00)
[2023-08-09] MEDS ORDERED: Ondansetron 4 MG/2 ML SDV IVPUSH PRN (10:00)
[2023-08-09 10:09] LABS: HEMATOCRIT 36.4 % (37.0-47.0); HEMOGLOBIN 12.3 g/dL (12.0-16.0); MEAN CORPUSCULAR HEMOGLOBIN 30.8 pg (27.0-34.0); MEAN CORPUSCULAR HGB CONC 33.8 g/dL (33.0-35.0); MEAN CORPUSCULAR VOLUME 91.2 fL (80-100); RED BLOOD CELL COUNT 3.99 10^6/uL (4.2-5.4); WHITE BLOOD CELL COUNT,WBC 11.9 10^3/uL (5.0-10.0)
[2023-08-09] MEDS ORDERED: fentaNYL 100 MCG/2 ML SDV ONE (10:25)
[2023-08-09] MEDS ORDERED: Bupivacaine 0.25% 10 ML SDV ONE (10:25)
[2023-08-09] MEDS: Lactated Ringers 1,000 ML IV SCH (10:29)
[2023-08-09] MEDS ORDERED: ePHEDrine 50 MG/ML SDV IVPUSH PRN (10:53)
[2023-08-09] MEDS ORDERED: Phenylephrine HCl In 0.9% NaCl 1 MG/10 ML Syringe IVPUSH PRN (10:53)
[2023-08-09] MEDS ORDERED: Ropivacaine 200 MG in Premix Bag 1 BAG EPIDUR SCH (11:00)
[2023-08-09] MEDS: Oxytocin/Normal Saline 30 UNIT/500 ML BAG IV SCH (14:21)
[2023-08-09] MEDS ORDERED: Witch Hazel Medicated Pads 100/Jar TOP PRN (18:01)
[2023-08-09] MEDS ORDERED: Oxytocin 10 Units/1 ML SDV IM PRN (18:01)
[2023-08-09] MEDS ORDERED: Benzocaine/Menthol 20%-0.5% Spray 78 GM Cannister TOP PRN (18:01)
[2023-08-09] MEDS ORDERED: Simethicone 80 MG Tab.Chew PO PRN (18:01)
[2023-08-09] MEDS ORDERED: Acetaminophen 325 MG Tab PO PRN (18:01)
[2023-08-09] MEDS: Ibuprofen 800 MG Tab PO SCH (21:09)
[2023-08-09] MEDS: Lidocaine 1% 30 ML SDV INJECT ONE (22:38)
[2023-08-10] MEDS: Prenatal Multivitamin with Calcium/Folic Acid/Iron Tab PO SCH (09:03)
[2023-08-10] MEDS: Acetaminophen 325 MG Tab PO PRN (09:03)
[2023-08-10] MEDS: Docusate Sodium 100 MG Cap PO PRN (09:03)
[2023-08-10] MEDS ORDERED: Bupivacaine 0.25% 10 ML SDV EPIDUR ONE (20:04)
[2023-08-10] MEDS ORDERED: fentaNYL 100 MCG/2 ML SDV EPIDUR ONE (20:04)
[2023-08-10] MEDS ORDERED: Ropivacaine 100 ML EPIDUR ONE (20:04)
[2023-08-10 21:36] VITALS: BP 136/84; PULSE 75
== END 2023-08-10 20:05 | disposition home or self-care (01) | DRG 807 ==
LOC: DL.OBCHECK 09:15 → DL.OB 10:00 → OBSVTOIN 10:00 → DL.OB 11:07
PROVIDERS: ADMIT Family Medicine; ATTEND Family Medicine
PROC: 10E0XZZ Delivery of Products of Conception, External Approach (ICD-10-PCS; principal; 2023-08-09)
PROC: 10907ZC Drainage of Amniotic Fluid, Therapeutic from Products of Conception, Via Natural or Artificial Opening (ICD-10-PCS; 2023-08-09)
PROC: 3E0S3BZ Introduction of Anesthetic Agent into Epidural Space, Percutaneous Approach (ICD-10-PCS; 2023-08-09)
PROC: 00HU33Z Insertion of Infusion Device into Spinal Canal, Percutaneous Approach (ICD-10-PCS; 2023-08-09)
DX: O66.3 Obstructed labor due to other abnormalities of fetus (principal); Z37.0 Single live birth; Z3A.39 39 weeks gestation of pregnancy
CPT/HCPCS: 01967; 36415; 59409; 59414; 85027; A9270-GY; J0665; J2590; J2795; J3010; J7120